=== PATIENT | male | born 1950 | race Caucasian/White ===

== ENCOUNTER 2016-07-06 08:02 | Emergency (ER) | payer SELFPAY ==
[~2016-07-06] VITALS: Ht 172.7 cm; Wt 75.0 kg
[2016-07-06 08:08] VITALS: BP 193/105; PULSE 70; RESP 18; O2SAT 98
--- NOTE | 2016-07-06 08:50 | ED.REPORT ---
HPI-Trauma Minor / Fall Date of Service Jul 06, 2016 ED Provider: Jina Kirby MD Pt is a 66 y/o male w/ a hx of R shoulder replacement x4, presenting to the ED via EMS due to right shoulder injury secondary to ground level fall onset prior to arrival. The pt lives with a mentally ill significant other and heard screaming and was startled out of bed. He tripped and fell onto a carpeted floor. He is now experiencing right shoulder pain. EMS notes a right knee and left forehead abrasion. He denies head injury, LOC, neck pain, CP, abdominal pain, back pain, syncope. He denies previous eye surgeries. He is asking for a refill for his chronic pain medication today. Nursing Notes Stated Complaint: GLF Chief Complaint: Multiple Trauma/Fall Nursing Notes Reviewed: Yes Allergies: Coded Allergies: No Known Allergies (Unverified , 04/27/16) General Time Seen by MD: 08:48 Chief Complaint Other (right shoulder pain) Hx Obtained From: Patient, EMS Arrived By: Ambulance Onset Occurred: Just prior to arrival Symptom Duration: Since onset Caused by: Fall on ground Location: Shoulder right Quality: Painful Severity: Current: Moderate Severity: Maximum: Moderate Past Medical History Past Medical History Notes: Orthopedic Surgeon: Dr. 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 Cardiovascular: Denies: Chest pain GI: Denies: Abdominal pain, Nausea, Vomiting Physical Exam Initial Vital Signs Vital Signs (First) Date Time Temp Pulse Resp B/P Pulse Ox O2 Delivery O2 Flow Rate FiO2 07/06/16 08:08 36.2 70 18 193/105 98 Room Air Initial VS: Reviewed, Vital signs abnormal ENT: Mucous membranes moist, Conjunctiva normal, No scleral icterus Respiratory: Breath sounds normal, Clear to auscultation, No respiratory distress Cardiovascular: Regular rate & rhythm, Heart sounds normal, Intact distal pulses Abdomen / GI: Soft, Non-tender, No guarding, No rebound, No distention Skin: Warm, Dry, No cyanosis Psychiatric: Mood/affect normal, Behavior normal, Normal thought content General/Constitutional: Awake, Alert, No acute distress, Well appearing, Cooperative, Not toxic appearing Neck: Atraumatic, Supple, Full range of motion, No swelling, Non-tender, No midline vertebral tend Head / Eyes: Atraumatic, Normocephalic Anisocoria - 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 X-Ray Interpretation Xray Interpretation: IMPRESSION: Lucency adjacent to humeral prosthesis of right shoulder arthroplasty has increased compared to prior examination. Loosening or infection cannot be excluded. Dictated by: Donita Haskins MD, PhD on 07/06/2016 at 8:53 Approved by: Donita Haskins MD, PhD on 07/06/2016 at 8:53 Study Performed: 2 view X-Ray Ordered: Shoulder right Interpretation / Wet Read by: Interpret - Radiologist Re-Eval/Medical Decision Med Decision/Clinical Course mechanical fall with pain to Right shoulder. multiple prior surgeries and chronic pain in that area. Requests refill of his MS contin 30mg as his doctor is out of town and he is out of meds. Last filled 06/09. Due on 05/09. Spoke with Dr. Barker reviewed x-rays. He recommended CT scan. Concern for periprosthetic fracture. Patient does have orthopedist with whom he can follow-up in [place] With review this with patient who is up pacing the room fully dressed holding his arm but moving his arm freely as he is talking suggesting the possibility of a periprosthetic fracture is low. He is upset that he is not going to be getting more of his pain medications I did explain that we would give him a single dose today. He would like to leave. Suggested that he wait for the single dose of pain medication. Offered a sling, stated he had any of these at home. he is safe for discharge. Of note, there is certainly more psychosocial overlay. The woman with whom he lives is currently also in the emergency Department it is unclear what the rest of the situation is. At this point he is medically stable to be sent home. Re-Evaluation/Progress : Time of Eval: 10:05 Re-Evaluation/Progress Note: Pt rechecked. Informed pt of plan for treatment. Pt understands and agrees with plan for treatment. F/U and RTER warnings given. All questions addressed. He is declining shoulder CT at this time. Counseled Regarding: Diagnosis, Lab results, Need for follow-up, When/why to return to ED Discharge & Departure Impression: Primary Impression: Fall Encounter type: initial encounter Qualified Code: W19.XXXA - Unspecified fall, initial encounter Additional Impression: Pain in humerus Disposition: Home Discharge Condition All VS Reviewed: Yes Condition: Stable Additional Instructions: You injured your arm/shoulder today. The xray does not show a clear fracture, but that is a concern. I would suggest that you use a sling for comfort (you said you had a number of theses at home). Please follow up with your orthopedist. Good luck Referrals: JARRED RICHRAD MD (PCP) Scribe Attestation Portions of this note were transcribed by Ministerio Melgoza. I, Dr. Kirby personally performed the history, physical exam and medical decision-making; I reviewed and confirmed the accuracy of the information in the transcribed note. Signed by Gurdeep Irizarry, 07/06/16 - [id number] copies to: JARRED RICHARD MD, Shawna L MD Jul 06, 2016 08:50 MINISTERIO MELGOZA Jul 06, 2016 08:55
--- NOTE | 2016-07-06 08:55 | DRSVH ---
PROCEDURE: X-RAY RIGHT SHOULDER, MINIMUM TWO VIEWS ([id number]) INDICATIONS: TRAUMA, surgical hx TECHNIQUE: 2 views of the shoulder were acquired. COMPARISON: [facility], CR, XR SHOULDER MIN 2VW RT, 04/27/2016, 1:43. FINDINGS: Bones: Postsurgical changes compatible with right shoulder arthroplasty are stable compared to prior examination. Lucency adjacent to the right humeral prosthesis has progressed compared to prior examin ation. Soft tissues: No suspicious soft tissue calcifications. IMPRESSION: Lucency adjacent to humeral prosthesis of right shoulder arthroplasty has increased marj red to prior examination. Loosening or infection cannot be excluded. Dictated by: Donita Haskins MD, PhD on 07/06/2016 at 8:53 Approved by: Donita Haskins MD, PhD on 07/06/2016 at 8:53
[2016-07-06] MEDS ORDERED: MORPHINE 10 MG PO ONE (09:15)
[2016-07-06] MEDS: Morphine ER 100 mg (MS Contin) Tablet PO ONE ×2 (09:20→10:53)
[2016-07-06] MEDS ORDERED: Morphine ER 30 mg (MS Contin) Tablet PO ONE (10:45)
== END 2016-07-06 10:57 | disposition home or self-care (01) ==
LOC: EDUNIT# 08:02 → EDBD 08:02 → SED 08:02
DX: M25.511 Pain in right shoulder (principal); S00.81XA Abrasion of other part of head, initial encounter; S80.211A Abrasion, right knee, initial encounter; W01.0XXA Fall on same level from slipping, tripping and stumbling without subsequent striking against object, initial encounter; Y93.89 Activity, other specified; Y92.89 Other specified places as the place of occurrence of the external cause; Y99.8 Other external cause status; Z96.611 Presence of right artificial shoulder joint